=== PATIENT | male | born 1970 | race African-American/Black ===

== ENCOUNTER 2019-01-15 12:10 | Emergency (ER) | payer OTHER ==
[~2019-01-15] VITALS: Ht 185.4 cm; Wt 115.0 kg
[2019-01-15] MEDS ORDERED: OXYCODONE HCL/ACETAMINOPHEN 5/325MG TABLET PO ONE (13:00)
[2019-01-15] MEDS ORDERED: KETOROLAC 15MG/ML VIAL IM ONE (13:00)
[2019-01-15] MEDS ORDERED: DIAZEPAM 5 MG TABLET PO ONE (13:30)
[2019-01-15] MEDS ORDERED: MORPHINE SULFATE 4 MG/ML CPJ (NOT FOR IM USE) IV ONE (14:45)
[2019-01-15] MEDS ORDERED: ONDANSETRON HCL 4MG/2ML INJ IV ONE (14:45)
[2019-01-15 15:23] LABS: HEMATOCRIT 47.8 % (42.0-52.0); HEMOGLOBIN 15.6 g/dL (14.0-18.0); MEAN CORPUSCULAR HEMOGLOBIN 28.3 pg (28.0-32.0); MEAN CORPUSCULAR VOLUME 86.7 fL (80.0-94.0); PLATELET 252 x1000/uL (130-400); RED BLOOD CELL COUNT 5.51 mill/uL (4.7-6.1); RED CELL DISTRIBUTION WIDTH 14.2 % (11.6-14.6)
[2019-01-15 15:26] LABS: CHLORIDE 105 mEq/L (98-107)
[2019-01-15 15:30] LABS: PARTIAL THROMBOPLASTIN TIME 27.5 sec (23.4-31.0); PROTHROMBIN TIME 10.3 sec (9.6-11.0)
[2019-01-15] MEDS ORDERED: IOHEXOL-300 100 ML BOTTLE ONE (16:15)
[2019-01-15 18:00] VITALS: BP 153/96
== END 2019-01-15 18:03 | disposition home or self-care (01) ==
LOC: ER 12:10
DX: S22.41XA Multiple fractures of ribs, right side, initial encounter for closed fracture (principal); R74.0 Nonspecific elevation of levels of transaminase and lactic acid dehydrogenase [LDH]; E11.65 Type 2 diabetes mellitus with hyperglycemia; F17.200 Nicotine dependence, unspecified, uncomplicated; W18.39XA Other fall on same level, initial encounter; Y93.01 Activity, walking, marching and hiking; Y92.89 Other specified places as the place of occurrence of the external cause; Y99.8 Other external cause status
CPT/HCPCS: 36415; 71045; 71260; 74177; 80053; 83690; 85027; 85610; 85730; 86850; 86900; 86901; 96372; 96374; 96375; 99284; J1885; J2270; J2405; Q9967; Z7610

== ENCOUNTER 2020-03-28 08:12 | Inpatient (IN) | payer MEDICAID, OTHER ==
[~2020-03-28] VITALS: Ht 172.7 cm; Wt 104.8 kg
[2020-03-28] MEDS ORDERED: ASPIRIN 325MG EC TABLET PO ONE (08:30)
[2020-03-28 09:07] LABS: BASOPHILS % 0.6 % (0.0-2.0); EOSINOPHILS % 0.2 % (0.0-5.0); HEMATOCRIT. 53.4 % (42.0-52.0); HEMOGLOBIN. 17.8 g/dL (14.0-18.0); LYMPHOCYTES % 12.6 % (20.0-50.0); MEAN CORPUSCULAR HEMOGLOBIN 28.2 pg (28.0-32.0); MEAN CORPUSCULAR VOLUME 84.5 fL (80.0-94.0); MEAN PLATELET VOLUME 8.4 fl (7.4-10.4); MONOCYTES % 7.5 % (2.0-8.0); NEUTROPHILS % 79.1 % (40.0-76.0); PLATELET 326 x1000/uL (130-400); RED BLOOD CELL COUNT 6.32 mill/uL (4.7-6.1); RED CELL DISTRIBUTION WIDTH 15.1 % (11.6-14.6)
[2020-03-28 09:15] LABS: CHLORIDE 97 mEq/L (98-107)
[2020-03-28] MEDS ORDERED: MORPHINE SULFATE 4 MG/ML CPJ (NOT FOR IM USE) IV STA (10:27)
[2020-03-28] MEDS ORDERED: ONDANSETRON HCL 4MG/2ML INJ IV STA (10:27)
[2020-03-28] MEDS ORDERED: ACETAMINOPHEN 325MG TABLET PO PRN (12:30)
[2020-03-28] MEDS ORDERED: ENOXAPARIN 40MG/0.4ML SYR SUBCUT SCH (12:30)
[2020-03-28] MEDS ORDERED: CLONIDINE 0.1MG TABLET PO PRN (12:30)
[2020-03-28] MEDS ORDERED: DIPHENHYDRAMINE 50MG/ML VIAL IV PRN (12:30)
[2020-03-28 12:45] LABS: PHOSPHORUS 2.9 mg/dL (2.5-4.9)
[2020-03-28] MEDS ORDERED: HYDRALAZINE 20MG/ML VIAL IV PRN (12:45)
[2020-03-28 13:00] LABS: C REACTIVE PROTEIN CARDIAC 4.1 mg/L (0.00-3.00)
[2020-03-28] MEDS: FUROSEMIDE 40MG/4ML VIAL IV SCH (14:15)
[2020-03-28 15:00] VITALS: BP 148/110
[2020-03-28] MEDS ORDERED: ROSU20TA2 MT (15:33)
[2020-03-28] MEDS ORDERED: ATEN50TA MT (15:33)
[2020-03-28] MEDS ORDERED: METF-816 MT (15:34)
[2020-03-28] MEDS: ONDANSETRON HCL 4MG/2ML INJ IV PRN ×2 (16:07→22:14)
[2020-03-28] MEDS: MORPHINE SULFATE 2 MG/ML CPJ (NOT FOR IM USE) IV PRN ×2 (16:08→22:33)
[2020-03-28] MEDS ORDERED: DEXTROSE 50% WATER 50ML SYRINGE IV PRN (16:15)
[2020-03-28 17:35] LABS: BG BASE EXCESS 2.1 mmol/L (-2.0-2.0); BG CARBOXYHEMOGLOBIN 0.1 % (0.5-1.5); BG DEOXYHEMOGLOBIN 0.1 % (0.0-5.0); BG FRACTION INSPIRED OXYGEN 100; BG HCO3 ACT 25.9 mmol/L (22.0-26.0); BG METHEMOGLOBIN 0.5 % (0.0-1.5); BG OXYGEN SATURATION 99.9 % (92.0-98.5); BG OXYHEMOGLOBIN 99.3 % (94.0-97.0); BG PCO2 38.1 mmHg (35.0-45.0); BG PH 7.451 (7.350-7.450); BG PO2 459.3 mmHg (75.0-100.0); BG SAMPLE SITE RIGHT RADIAL; BG TOTAL HEMOGLOBIN 18.1 g/dL (12.0-18.0); BG VENT MODE MASK - NRB
[2020-03-28] MEDS: BLOOD SUGAR DIAGNOSTIC STRIP TEST SCH ×2 (17:40→21:00)
[2020-03-28] MEDS ORDERED: ALBUTEROL (0.083%) 2.5MG/3ML NEB HHN SCH (17:45)
[2020-03-28] MEDS: INSULIN LISPRO 100 UNITS/ML SUBCUT SCH ×3 (18:10→22:15)
[2020-03-28 20:00] VITALS: BP 142/93
[2020-03-28] MEDS: ENOXAPARIN 30MG/0.3ML SYR SUBCUT SCH (22:14)
[2020-03-29] VITALS: BP 138/89
[2020-03-29] MEDS: MORPHINE SULFATE 2 MG/ML CPJ (NOT FOR IM USE) IV PRN ×5 (02:34→22:41)
[2020-03-29 04:00] VITALS: BP 126/82
[2020-03-29] MEDS: ONDANSETRON HCL 4MG/2ML INJ IV PRN (05:36)
[2020-03-29] MEDS: ALBUTEROL 6.7GM HFA INHALER INH SCH ×4 (06:00→18:00)
[2020-03-29 06:31] LABS: BASOPHILS % 0.6 % (0.0-2.0); EOSINOPHILS % 0.2 % (0.0-5.0); HEMOGLOBIN. 17.6 g/dL (14.0-18.0); LYMPHOCYTES % 15.9 % (20.0-50.0); MEAN CORPUSCULAR VOLUME 84.6 fL (80.0-94.0); MEAN PLATELET VOLUME 9.2 fl (7.4-10.4); MONOCYTES % 9.3 % (2.0-8.0); PLATELET 311 x1000/uL (130-400); RED BLOOD CELL COUNT 6.26 mill/uL (4.7-6.1); RED CELL DISTRIBUTION WIDTH 15.1 % (11.6-14.6)
[2020-03-29 06:37] LABS: CHLORIDE 100 mEq/L (98-107)
[2020-03-29 06:47] LABS: LDL CHOLESTEROL 288 mg/dL (5-100)
[2020-03-29 06:48] LABS: HDL CHOLESTEROL 59 mg/dL (40-59)
[2020-03-29] MEDS: BLOOD SUGAR DIAGNOSTIC STRIP TEST SCH ×4 (07:33→21:00)
[2020-03-29 08:00] VITALS: BP 155/106
[2020-03-29] MEDS: ENOXAPARIN 30MG/0.3ML SYR SUBCUT SCH ×2 (08:34→22:41)
[2020-03-29] MEDS: FUROSEMIDE 40MG/4ML VIAL IV SCH (08:34)
[2020-03-29] MEDS: INSULIN LISPRO 100 UNITS/ML SUBCUT SCH ×4 (08:36→22:39)
[2020-03-29] MEDS ORDERED: LORAZEPAM 2MG/ML CPJ IV PRN (10:00)
[2020-03-29] MEDS ORDERED: MAGNESIUM 1 G PREMIX 100 ML IV SCH (11:00)
[2020-03-29 12:00] VITALS: BP 155/96
[2020-03-29] MEDS: PANTOPRAZOLE SODIUM 40 MG/VIAL IV SCH ×2 (12:19→22:41)
[2020-03-29] MEDS: ASPIRIN 81MG TABLET PO SCH (12:20)
[2020-03-29] MEDS: AMLODIPINE 5MG TABLET PO SCH (12:21)
[2020-03-29 16:00] VITALS: BP 136/87
[2020-03-29 20:00] VITALS: BP_SYST 148; BP_SYST 173; BP_DIAS 74; BP_DIAS 88
[2020-03-29] MEDS: ATORVASTATIN CALCIUM 40MG TABLET PO SCH (22:41)
[2020-03-30] VITALS: BP 136/89
[2020-03-30] MEDS: ONDANSETRON HCL 4MG/2ML INJ IV PRN ×2 (05:01→18:34)
[2020-03-30] MEDS: ALBUTEROL 6.7GM HFA INHALER INH SCH ×2 (05:09)
[2020-03-30] MEDS: BLOOD SUGAR DIAGNOSTIC STRIP TEST SCH ×4 (06:41→20:53)
[2020-03-30 07:37] LABS: CHLORIDE 100 mEq/L (98-107)
[2020-03-30 07:43] LABS: BASOPHILS % 0.5 % (0.0-2.0); EOSINOPHILS % 1.1 % (0.0-5.0); HEMATOCRIT. 49.5 % (42.0-52.0); HEMOGLOBIN. 16.3 g/dL (14.0-18.0); LYMPHOCYTES % 24.3 % (20.0-50.0); MEAN CORPUSCULAR HEMOGLOBIN 27.8 pg (28.0-32.0); MEAN CORPUSCULAR VOLUME 84.3 fL (80.0-94.0); MONOCYTES % 10.5 % (2.0-8.0); NEUTROPHILS % 63.6 % (40.0-76.0); PLATELET 269 x1000/uL (130-400); RED BLOOD CELL COUNT 5.88 mill/uL (4.7-6.1); RED CELL DISTRIBUTION WIDTH 15.1 % (11.6-14.6)
[2020-03-30 08:00] VITALS: BP 92/47
[2020-03-30] MEDS: PANTOPRAZOLE SODIUM 40 MG/VIAL IV SCH ×2 (08:17→21:28)
[2020-03-30] MEDS: FUROSEMIDE 40MG/4ML VIAL IV SCH (08:17)
[2020-03-30] MEDS: ENOXAPARIN 30MG/0.3ML SYR SUBCUT SCH ×2 (08:18→21:28)
[2020-03-30] MEDS: ASPIRIN 81MG TABLET PO SCH (08:18)
[2020-03-30] MEDS: INSULIN LISPRO 100 UNITS/ML SUBCUT SCH ×4 (08:19→21:30)
[2020-03-30] MEDS: AMLODIPINE 5MG TABLET PO SCH (08:22)
[2020-03-30 11:41] LABS: BG BASE EXCESS 4.4 mmol/L (-2.0-2.0); BG CARBOXYHEMOGLOBIN 0.4 % (0.5-1.5); BG DEOXYHEMOGLOBIN 0.3 % (0.0-5.0); BG FRACTION INSPIRED OXYGEN 99.8; BG HCO3 ACT 29.2 mmol/L (22.0-26.0); BG METHEMOGLOBIN 0.4 % (0.0-1.5); BG OXYGEN SATURATION 99.7 % (92.0-98.5); BG OXYHEMOGLOBIN 98.9 % (94.0-97.0); BG PCO2 43.8 mmHg (35.0-45.0); BG PH 7.442 (7.350-7.450); BG PO2 285.5 mmHg (75.0-100.0); BG SAMPLE SITE RIGHT RADIAL; BG TOTAL HEMOGLOBIN 17.2 g/dL (12.0-18.0); BG VENT MODE MASK - NRB
[2020-03-30 12:00] VITALS: BP 93/52
[2020-03-30] MEDS ORDERED: BUDESONIDE 0.5MG/2ML NEB HHN SCH (12:00)
[2020-03-30] MEDS ORDERED: IPRATROPIUM/ALBUTEROL 0.5-3(2.5)MG/3ML NEB HHN SCH (12:00)
[2020-03-30 16:00] VITALS: BP 96/65
[2020-03-30 16:50] VITALS: BP 101/62
[2020-03-30 20:00] VITALS: BP 105/68
[2020-03-30] MEDS: ATORVASTATIN CALCIUM 40MG TABLET PO SCH (21:28)
[2020-03-30] MEDS: MORPHINE SULFATE 2 MG/ML CPJ (NOT FOR IM USE) IV PRN (21:29)
[2020-03-30] MEDS ORDERED: INSULIN GLARGINE UD 100 UNITS/ML SYR SUBCUT SCH (22:00)
[2020-03-31] VITALS: BP 99/61
[2020-03-31] MEDS: ONDANSETRON HCL 4MG/2ML INJ IV PRN ×2 (03:32→09:53)
[2020-03-31 03:54] VITALS: BP 91/51
[2020-03-31] MEDS: BLOOD SUGAR DIAGNOSTIC STRIP TEST SCH ×3 (05:57→17:10)
[2020-03-31] MEDS: INSULIN LISPRO 100 UNITS/ML SUBCUT SCH ×3 (05:57→17:40)
[2020-03-31 06:04] LABS: BASOPHILS % 0.6 % (0.0-2.0); EOSINOPHILS % 1.5 % (0.0-5.0); HEMOGLOBIN. 15.9 g/dL (14.0-18.0); LYMPHOCYTES % 25.8 % (20.0-50.0); MEAN CORPUSCULAR HEMOGLOBIN 28.5 pg (28.0-32.0); MEAN CORPUSCULAR VOLUME 84.4 fL (80.0-94.0); MEAN PLATELET VOLUME 8.9 fl (7.4-10.4); MONOCYTES % 10.7 % (2.0-8.0); NEUTROPHILS % 61.4 % (40.0-76.0); PLATELET 262 x1000/uL (130-400); RED BLOOD CELL COUNT 5.57 mill/uL (4.7-6.1); RED CELL DISTRIBUTION WIDTH 14.9 % (11.6-14.6)
[2020-03-31 06:46] LABS: T4 FREE 1.22 ng/dL (0.76-1.46)
[2020-03-31 08:00] VITALS: BP 98/62
[2020-03-31] MEDS: AMLODIPINE 5MG TABLET PO SCH (08:11)
[2020-03-31] MEDS: ASPIRIN 81MG TABLET PO SCH (08:21)
[2020-03-31] MEDS: ENOXAPARIN 30MG/0.3ML SYR SUBCUT SCH (08:23)
[2020-03-31] MEDS: PANTOPRAZOLE SODIUM 40 MG/VIAL IV SCH (08:23)
[2020-03-31 12:00] VITALS: BP 96/63
[2020-03-31] MEDS ORDERED: LIP40 PO (14:37)
[2020-03-31] MEDS ORDERED: LANTUSUD SUBCUT (14:37)
[2020-03-31] MEDS ORDERED: ASPI-1160 PO (14:37)
[2020-03-31] MEDS ORDERED: PANT40TA4 MT (14:37)
[2020-03-31 16:27] VITALS: BP 96/53
== END 2020-03-31 18:30 | disposition home or self-care (01) | DRG 140 ==
LOC: ER 08:25 → EDBEDREQ 10:33 → EDBEDREQTM 11:25 → EDBEDREQ 11:25 → ENRESERV 11:34 → 7WST 12:03 → EDBEDREQ 12:07 → 8WST 03-30 16:59
PROVIDERS: ADMIT Internal Medicine; ATTEND Internal Medicine
DX: J44.1 Chronic obstructive pulmonary disease with (acute) exacerbation (principal); I11.0 Hypertensive heart disease with heart failure; J96.01 Acute respiratory failure with hypoxia; E11.65 Type 2 diabetes mellitus with hyperglycemia; E78.5 Hyperlipidemia, unspecified; K52.9 Noninfective gastroenteritis and colitis, unspecified; I50.33 Acute on chronic diastolic (congestive) heart failure; F17.210 Nicotine dependence, cigarettes, uncomplicated; J84.9 Interstitial pulmonary disease, unspecified; Z20.828 Contact with and (suspected) exposure to other viral communicable diseases; Z79.4 Long term (current) use of insulin
CPT/HCPCS: 36415; 36600; 71045; 71275; 80048; 80053; 80061; 82375; 82728; 82805; 82962; 83036; 83615; 83735; 83880; 84100; 84439; 84443; 84481; 84484; 85025; 85379; 86141; 87635; 93005; 93306; 99291; C9113; J1650; J1815; J1940; J2270; J2405; J3475

== ENCOUNTER 2020-05-02 22:06 | Inpatient (IN) | payer MEDICAID ==
[~2020-05-02] VITALS: Ht 185.4 cm; Wt 113.0 kg
[~2020-05-02 22:06] MED LIST: ASPI-1160 PO; LANTUSUD SUBCUT; LIP40 PO; METF-816 MT; PANT40TA4 MT
[2020-05-02] MEDS ORDERED: ASPIRIN 81MG TABLET PO ONE (22:30)
[2020-05-02 23:38] LABS: BASOPHILS % 0.5 % (0.0-2.0); EOSINOPHILS % 0.1 % (0.0-5.0); HEMATOCRIT. 50.7 % (42.0-52.0); LYMPHOCYTES % 15.3 % (20.0-50.0); MEAN CORPUSCULAR HEMOGLOBIN 28.4 pg (28.0-32.0); MEAN CORPUSCULAR VOLUME 84.7 fL (80.0-94.0); MEAN PLATELET VOLUME 8.6 fl (7.4-10.4); MONOCYTES % 3.9 % (2.0-8.0); NEUTROPHILS % 80.2 % (40.0-76.0); PLATELET 317 x1000/uL (130-400); RED BLOOD CELL COUNT 5.98 mill/uL (4.7-6.1); RED CELL DISTRIBUTION WIDTH 14.5 % (11.6-14.6)
[2020-05-02 23:45] LABS: CHLORIDE 100 mEq/L (98-107)
[2020-05-02] MEDS ORDERED: SODIUM CHLORIDE 0.9% 1,000 ML IV ONE (23:45)
[2020-05-02] MEDS ORDERED: KETOROLAC 30MG/ML VIAL IV ONE (23:45)
[2020-05-03] MEDS ORDERED: SODIUM CHLORIDE 0.9% 1,000 ML IV ONE (01:30)
[2020-05-03] MEDS: MORPHINE SULFATE 2 MG/ML CPJ (NOT FOR IM USE) IV PRN ×4 (03:01→22:57)
[2020-05-03 05:01] VITALS: BP 104/92
[2020-05-03 08:00] VITALS: BP 149/90
[2020-05-03] MEDS ORDERED: MORPHINE SULFATE 2 MG/ML CPJ (NOT FOR IM USE) IV PRN (09:15)
[2020-05-03] MEDS: ONDANSETRON HCL 4MG/2ML INJ IV PRN ×2 (09:55→22:59)
[2020-05-03 12:00] VITALS: BP 126/96
[2020-05-03 16:00] VITALS: BP 139/95
[2020-05-03] MEDS ORDERED: MAGNESIUM/ALUMINUM HYDROXIDE/SIMETHICONE 30ML UDC PO PRN (16:15)
[2020-05-03] MEDS ORDERED: CLONIDINE 0.1MG TABLET PO PRN (16:15)
[2020-05-03] MEDS ORDERED: DEXTROSE 50% WATER 50ML SYRINGE IV PRN ×2 (16:15)
[2020-05-03] MEDS ORDERED: ACETAMINOPHEN 325MG TABLET PO PRN (16:15)
[2020-05-03] MEDS: BLOOD SUGAR DIAGNOSTIC STRIP TEST SCH ×2 (16:57→20:51)
[2020-05-03] MEDS: OMEPRAZOLE 20MG CAPSULE EXTENDED RELEASE PO SCH (17:02)
[2020-05-03] MEDS: METFORMIN HCL 500MG TABLET PO SCH (17:02)
[2020-05-03] MEDS: ENOXAPARIN 30MG/0.3ML SYR SUBCUT SCH (17:02)
[2020-05-03] MEDS: DOCUSATE SODIUM 100MG CAPSULE PO SCH (17:03)
[2020-05-03] MEDS: SODIUM CHLORIDE 0.9% 1,000 ML IV SCH (17:03)
[2020-05-03] MEDS ORDERED: MAGNESIUM CITRATE 300ML SOLUTION PO NR (18:00)
[2020-05-03 20:00] VITALS: BP 135/91
[2020-05-03] MEDS: ATORVASTATIN CALCIUM 40MG TABLET PO SCH (20:53)
[2020-05-03] MEDS: INSULIN GLARGINE UD 100 UNITS/ML SYR SUBCUT SCH (22:57)
[2020-05-04] VITALS: BP 119/80
[2020-05-04 04:00] VITALS: BP 105/66
[2020-05-04] MEDS: SODIUM CHLORIDE 0.9% 1,000 ML IV SCH ×2 (04:50→19:17)
[2020-05-04] MEDS: MORPHINE SULFATE 2 MG/ML CPJ (NOT FOR IM USE) IV PRN ×2 (05:07→20:48)
[2020-05-04] MEDS: ENOXAPARIN 30MG/0.3ML SYR SUBCUT SCH ×2 (05:08→19:17)
[2020-05-04] MEDS: BLOOD SUGAR DIAGNOSTIC STRIP TEST SCH ×4 (06:45→21:09)
[2020-05-04] MEDS: OMEPRAZOLE 20MG CAPSULE EXTENDED RELEASE PO SCH ×2 (06:45→16:58)
[2020-05-04 07:40] LABS: BASOPHILS % 0.6 % (0.0-2.0); EOSINOPHILS % 1.8 % (0.0-5.0); HEMATOCRIT. 44.4 % (42.0-52.0); HEMOGLOBIN. 14.9 g/dL (14.0-18.0); LYMPHOCYTES % 33.7 % (20.0-50.0); MEAN CORPUSCULAR HEMOGLOBIN 28.8 pg (28.0-32.0); MEAN CORPUSCULAR VOLUME 85.8 fL (80.0-94.0); MEAN PLATELET VOLUME 8.3 fl (7.4-10.4); MONOCYTES % 9.4 % (2.0-8.0); NEUTROPHILS % 54.5 % (40.0-76.0); PLATELET 228 x1000/uL (130-400); RED BLOOD CELL COUNT 5.18 mill/uL (4.7-6.1); RED CELL DISTRIBUTION WIDTH 14.9 % (11.6-14.6)
[2020-05-04 08:00] VITALS: BP 117/80
[2020-05-04 08:10] LABS: OPIATES URINE SCREEN PRESUMTIVE POSITIVE (NEGATIVE)
[2020-05-04 08:11] LABS: *AMPHETAMINES SCREEN URINE NEGATIVE (NEGATIVE); *BARBITURATES SCREEN URINE NEGATIVE (NEGATIVE); *BENZODIAZEPINES SCREEN URINE NEGATIVE (NEGATIVE); *COCAINE SCREEN URINE NEGATIVE (NEGATIVE); CANNABINOID URINE SCREEN PRESUMTIVE POSITIVE (NEGATIVE); METHADONE URINE SCREEN NEGATIVE (NEGATIVE); PHENCYCLIDINE URINE SCREEN NEGATIVE (NEGATIVE)
[2020-05-04 08:56] LABS: CHLORIDE 107 mEq/L (98-107)
[2020-05-04 09:03] LABS: AMYLASE 75 IU/L (25-115)
[2020-05-04 09:06] LABS: PHOSPHORUS 2.1 mg/dL (2.5-4.9)
[2020-05-04 09:07] LABS: LDL CHOLESTEROL 146 mg/dL (5-100)
[2020-05-04 09:10] LABS: HDL CHOLESTEROL 39 mg/dL (40-59)
[2020-05-04] MEDS: METFORMIN HCL 500MG TABLET PO SCH ×2 (10:32→16:58)
[2020-05-04] MEDS: DOCUSATE SODIUM 100MG CAPSULE PO SCH ×2 (10:32→16:58)
[2020-05-04] MEDS: ASPIRIN 81MG TABLET PO SCH (10:32)
[2020-05-04] MEDS: ONDANSETRON HCL 4MG/2ML INJ IV PRN (11:05)
[2020-05-04] MEDS ORDERED: MORPHINE SULFATE 4 MG/ML CPJ (NOT FOR IM USE) IV NR (11:09)
[2020-05-04 12:00] VITALS: BP 133/97
[2020-05-04] MEDS ORDERED: SORBITOL 70% SOLN 30ML PO NR (12:15)
[2020-05-04] MEDS ORDERED: VARE1TAB22 MT (12:21)
[2020-05-04] MEDS ORDERED: METF-816 MT (12:21)
[2020-05-04] MEDS ORDERED: IPRATROPIUM/ALBUTEROL 0.5-3(2.5)MG/3ML NEB HHN PRN (12:30)
[2020-05-04] MEDS ORDERED: POTASSIUM-SODIUM PHOSPHATE POWDER PACKET PO NR (13:30)
[2020-05-04 16:00] VITALS: BP 102/67
[2020-05-04] MEDS ORDERED: NA PHOS,M-B/NA PHOS,DI-BA ENEMA 118ML PR NR (19:15)
[2020-05-04 20:00] VITALS: BP 111/75
[2020-05-04] MEDS ORDERED: DEXTROSE 50% WATER 50ML SYRINGE IV PRN (21:15)
[2020-05-04] MEDS: ATORVASTATIN CALCIUM 40MG TABLET PO SCH (21:54)
[2020-05-04] MEDS: INSULIN GLARGINE UD 100 UNITS/ML SYR SUBCUT SCH (21:54)
[2020-05-04] MEDS: INSULIN LISPRO 100 UNITS/ML SUBCUT SCH (21:54)
[2020-05-05] VITALS (7 sets, daily range): BP systolic 116–148; BP diastolic 72–97
[2020-05-05] MEDS: MORPHINE SULFATE 2 MG/ML CPJ (NOT FOR IM USE) IV PRN ×4 (03:27→22:18)
[2020-05-05] MEDS: ENOXAPARIN 30MG/0.3ML SYR SUBCUT SCH ×2 (06:26→17:22)
[2020-05-05] MEDS: BLOOD SUGAR DIAGNOSTIC STRIP TEST SCH ×4 (06:27→21:01)
[2020-05-05] MEDS: INSULIN LISPRO 100 UNITS/ML SUBCUT SCH ×4 (06:27→21:00)
[2020-05-05] MEDS: OMEPRAZOLE 20MG CAPSULE EXTENDED RELEASE PO SCH (06:27)
[2020-05-05] MEDS: SODIUM CHLORIDE 0.9% 1,000 ML IV SCH ×2 (08:11→21:01)
[2020-05-05] MEDS: ASPIRIN 81MG TABLET PO SCH (08:11)
[2020-05-05] MEDS: METFORMIN HCL 500MG TABLET PO SCH ×2 (08:11→16:19)
[2020-05-05] MEDS: DOCUSATE SODIUM 100MG CAPSULE PO SCH ×2 (08:11→16:19)
[2020-05-05 09:21] LABS: BASOPHILS % 0.8 % (0.0-2.0); EOSINOPHILS % 2.6 % (0.0-5.0); HEMATOCRIT. 43.1 % (42.0-52.0); HEMOGLOBIN. 14.4 g/dL (14.0-18.0); LYMPHOCYTES % 37.4 % (20.0-50.0); MEAN CORPUSCULAR HEMOGLOBIN 28.5 pg (28.0-32.0); MEAN CORPUSCULAR VOLUME 85.6 fL (80.0-94.0); MEAN PLATELET VOLUME 8.9 fl (7.4-10.4); MONOCYTES % 11.3 % (2.0-8.0); NEUTROPHILS % 47.9 % (40.0-76.0); PLATELET 251 x1000/uL (130-400); RED BLOOD CELL COUNT 5.03 mill/uL (4.7-6.1); RED CELL DISTRIBUTION WIDTH 14.5 % (11.6-14.6)
[2020-05-05 09:48] LABS: CHLORIDE 106 mEq/L (98-107)
[2020-05-05] MEDS: ONDANSETRON HCL 4MG/2ML INJ IV PRN ×3 (09:52→22:18)
[2020-05-05] MEDS ORDERED: MAGNESIUM/ALUMINUM HYDROXIDE/SIMETHICONE 30ML UDC PO SCH (12:15)
[2020-05-05] MEDS: SORBITOL 70% SOLN 30ML PO NR ×3 (15:37→16:18)
[2020-05-05] MEDS: FAMOTIDINE 20MG TABLET PO SCH (16:19)
[2020-05-05] MEDS: ATORVASTATIN CALCIUM 40MG TABLET PO SCH (21:01)
[2020-05-05] MEDS: INSULIN GLARGINE UD 100 UNITS/ML SYR SUBCUT SCH (21:02)
[2020-05-06] VITALS: BP 172/107
[2020-05-06 04:00] VITALS: BP 144/101
[2020-05-06] MEDS: MORPHINE SULFATE 2 MG/ML CPJ (NOT FOR IM USE) IV PRN (04:13)
[2020-05-06] MEDS: ENOXAPARIN 30MG/0.3ML SYR SUBCUT SCH ×2 (05:48→18:35)
[2020-05-06] MEDS: FAMOTIDINE 20MG TABLET PO SCH ×2 (05:48→16:01)
[2020-05-06] MEDS: BLOOD SUGAR DIAGNOSTIC STRIP TEST SCH ×4 (06:12→21:32)
[2020-05-06] MEDS: METFORMIN HCL 500MG TABLET PO SCH ×2 (06:22→18:35)
[2020-05-06] MEDS: INSULIN LISPRO 100 UNITS/ML SUBCUT SCH ×4 (06:22→21:00)
[2020-05-06 08:00] VITALS: BP 124/84
[2020-05-06] MEDS: ASPIRIN 81MG TABLET PO SCH (08:23)
[2020-05-06] MEDS: DOCUSATE SODIUM 100MG CAPSULE PO SCH ×2 (08:23→16:01)
[2020-05-06] MEDS ORDERED: MAGNESIUM HYDROXIDE 400MG/5ML 30ML UDC PO SCH (08:45)
[2020-05-06] MEDS: BISACODYL 10MG SUPP PR PRN ×2 (10:13→14:04)
[2020-05-06] MEDS: SODIUM CHLORIDE 0.9% 1,000 ML IV SCH (10:22)
[2020-05-06 12:00] VITALS: BP 150/98
[2020-05-06 16:00] VITALS: BP 149/93
[2020-05-06] MEDS: AMLODIPINE 10MG TABLET PO SCH (16:02)
[2020-05-06 20:00] VITALS: BP 165/88
[2020-05-06] MEDS: ATORVASTATIN CALCIUM 40MG TABLET PO SCH (21:37)
[2020-05-06] MEDS: INSULIN GLARGINE UD 100 UNITS/ML SYR SUBCUT SCH (21:38)
[2020-05-07] VITALS: BP 139/81
[2020-05-07] MEDS: SODIUM CHLORIDE 0.9% 1,000 ML IV SCH ×2 (00:05→15:47)
[2020-05-07 04:00] VITALS: BP 129/87
[2020-05-07] MEDS: ENOXAPARIN 30MG/0.3ML SYR SUBCUT SCH (05:12)
[2020-05-07] MEDS: BLOOD SUGAR DIAGNOSTIC STRIP TEST SCH ×3 (06:31→16:45)
[2020-05-07] MEDS: INSULIN LISPRO 100 UNITS/ML SUBCUT SCH ×3 (06:31→17:15)
[2020-05-07] MEDS: FAMOTIDINE 20MG TABLET PO SCH ×2 (06:33→17:06)
[2020-05-07 08:00] VITALS: BP 139/94
[2020-05-07] MEDS: ASPIRIN 81MG TABLET PO SCH (08:22)
[2020-05-07] MEDS: AMLODIPINE 10MG TABLET PO SCH (08:23)
[2020-05-07] MEDS: METFORMIN HCL 500MG TABLET PO SCH ×2 (08:23→17:15)
[2020-05-07] MEDS: DOCUSATE SODIUM 250MG CAPSULE PO SCH ×2 (08:23→17:00)
[2020-05-07 12:00] VITALS: BP 148/93
[2020-05-07] MEDS ORDERED: KETOROLAC 30MG/ML VIAL IV PRN (14:00)
[2020-05-07] MEDS ORDERED: TRAMADOL 50MG TABLET PO PRN (14:00)
[2020-05-07] MEDS: ONDANSETRON HCL 4MG/2ML INJ IV PRN (15:43)
[2020-05-07 16:00] VITALS: BP 133/79
[2020-05-07] MEDS ORDERED: DOCU250C14 MT (16:17)
[2020-05-07] MEDS ORDERED: PANT40TA4 MT (16:17)
[2020-05-07] MEDS ORDERED: MAGNESIUM/ALUMINUM HYDROXIDE/SIMETHICONE 30ML UDC PO NR (16:30)
[2020-05-07 17:42] VITALS: BP 133/79
== END 2020-05-07 18:00 | disposition home or self-care (01) | DRG 247 ==
LOC: ER 22:06 → 7WST 05-03 01:30 → ENRESERV 05-03 02:24 → 5WST 05-03 18:21
PROVIDERS: ADMIT Internal Medicine; ATTEND Internal Medicine
DX: K56.41 Fecal impaction (principal); M94.0 Chondrocostal junction syndrome [Tietze]; I10 Essential (primary) hypertension; E11.9 Type 2 diabetes mellitus without complications; E78.5 Hyperlipidemia, unspecified; F12.90 Cannabis use, unspecified, uncomplicated; J44.9 Chronic obstructive pulmonary disease, unspecified; R65.10 Systemic inflammatory response syndrome (SIRS) of non-infectious origin without acute organ dysfunction; R07.89 Other chest pain; Z20.828 Contact with and (suspected) exposure to other viral communicable diseases; Z72.0 Tobacco use; Z71.6 Tobacco abuse counseling; Z79.899 Other long term (current) drug therapy; Z79.82 Long term (current) use of aspirin; Z79.4 Long term (current) use of insulin
CPT/HCPCS: 36415; 71045; 74018; 74176; 76700; 80048; 80053; 80061; 80305; 82150; 82962; 83036; 83735; 83880; 84100; 84443; 84484; 85025; 87635; 93005; 93306; 93970; 99291; J1650; J1815; J1885; J2270; J2405; J7030